=== PATIENT | male | born 1940 | race Caucasian/White ===

== ENCOUNTER 2023-12-09 14:52 | Inpatient (IN) | payer BC, OTHER ==
[~2023-12-09] VITALS: Ht 177.8 cm; Wt 110.0 kg
[~2023-12-09 14:52] MED LIST: GEMF-66; GLYB5TAB66; LISI10TA34; MAGN241.4; METO1TAB9; POTA-220; SITA50TA13; WARF6TAB2
[2023-12-09] MEDS: FUROSEMIDE 40 MG/4 ML VIAL IV ONE (15:42)
[2023-12-09 15:46] LABS: Basophils # (auto) 0 10 ^3/uL (0-0.2); Basophils % (auto) 0.2 % (0.0-2.0); Eosinophils # (auto) 0 10 ^3/uL (0-0.8); Eosinophils % (auto) 0.1 % (0.0-7.0); Hematocrit 45.5 % (41.0-53.0); Hemoglobin 14.8 g/dL (13.5-17.5); Lymphocytes # (auto) 0.8 10 ^3/uL (0.4-5.4); Lymphocytes % (auto) 9.5 % (10.0-50.0); Mean Corpuscular Hgb Conc. 32.4 g/dL (32.0-36.0); Mean Corpuscular Volume 95.5 fL (80.0-100.0); Monocytes # (auto) 0.8 10 ^3/uL (0-1.3); Neutrophils # (auto) 6.6 10 ^3/uL (1.6-8.6); Neutrophils % (auto) 80.2 % (37.0-80.0); Nucleated Red Blood Cells % 0.1 %; Red Blood Cells 4.76 10^6/uL (4.5-5.90); Red Cell Distribution Width 15.4 % (11.8-14.3); White Blood Cell 8.3 10^3/uL (4.4-10.8)
[2023-12-09 16:00] VITALS: PULSE 54; RESP 16; O2SAT 96
[2023-12-09 16:08] LABS: Urine Bacteria None Seen /hpf (None Seen)
[2023-12-09 16:12] LABS: Chloride 100 mmol/L (98-107); Potassium 5.2 mmol/L (3.5-5.1); Sodium 137 mmol/L (136-145)
[2023-12-09 16:13] LABS: Anion Gap 3 (5-15); Calcium 8.7 mg/dL (8.7-10.4); Carbon Dioxide 34 mmol/L (20-30)
[2023-12-09 16:18] LABS: Blood Urea Nitrogen 16 mg/dL (9-23); Glucose 186 mg/dL (74-106)
[2023-12-09 16:38] LABS: Urine Blood Negative /uL (Negative); Urine Clarity Clear (Clear); Urine Color Yellow (Yellow); Urine Hyaline Cast FEW /lpf (0 - 2); Urine Mucus FEW (None Seen); Urine Protein, UAD TRACE (Negative); Urine Specific Gravity 1.018 (1.001-1.035); Urine Urobilinogen 4 mg/dL (Negative); Urine WBC 3 /hpf (0 - 3)
[2023-12-09 19:30] VITALS: PULSE 70; RESP 16; O2SAT 98
[2023-12-09] MEDS ORDERED: hydrALAZINE HCL 20 MG/ML VL IV PRN (22:15)
[2023-12-09] MEDS ORDERED: ACETAMINOPHEN 325 MG TAB PO PRN (22:15)
[2023-12-09] MEDS ORDERED: SODIUM CHLORIDE 0.9% 1,000 ML IV SCH (22:15)
[2023-12-09] MEDS ORDERED: ONDANSETRON HCL 4 MG/2 ML VIAL IV PRN (22:15)
[2023-12-09] MEDS ORDERED: DEXTROSE (50%) 50ML SYRG IV PRN (22:15)
[2023-12-09] MEDS ORDERED: NITROGLYCERIN 0.4 MG SL TAB SL PRN (23:45)
[2023-12-10] VITALS (10 sets, daily range): BP systolic 99–141; BP diastolic 54–76; PULSE 65–71; RESP 17–20; TEMP 97.2–98.1; O2SAT 94–100
[2023-12-10] MEDS ORDERED: APIX2.5T PO (03:02)
[2023-12-10 05:58] LABS: Alkaline Phosphatase 56 U/L (46-116); Anion Gap 7 (5-15); Aspartate Aminotransferase 25 U/L (13-40); Calcium 8.6 mg/dL (8.7-10.4); Carbon Dioxide 31 mmol/L (20-30); Chloride 99 mmol/L (98-107); Potassium 4.2 mmol/L (3.5-5.1); Sodium 137 mmol/L (136-145)
[2023-12-10 06:00] LABS: BUN/Creatinine Ratio 10.3 (10.0-20.0); Blood Urea Nitrogen 12 mg/dL (9-23); Glucose 123 mg/dL (74-106)
[2023-12-10 06:02] LABS: Bilirubin, Total 1.7 mg/dL (0.2-1.0)
[2023-12-10] MEDS: InsuLIN REG 1unit/0.01ml Soln (100units/ml) SC SCH (06:07)
[2023-12-10] MEDS: ACCU-CHEK COMFORT CURVE STRIP VI SCH (06:07)
[2023-12-10 06:12] LABS: Alanine Aminotransferase 18 U/L (7-40)
[2023-12-10 06:13] LABS: Basophils # (auto) 0 10 ^3/uL (0-0.2); Basophils % (auto) 0.2 % (0.0-2.0); Eosinophils # (auto) 0 10 ^3/uL (0-0.8); Eosinophils % (auto) 0.1 % (0.0-7.0); Hematocrit 42.8 % (41.0-53.0); Hemoglobin 14.1 g/dL (13.5-17.5); Lymphocytes # (auto) 1.1 10 ^3/uL (0.4-5.4); Lymphocytes % (auto) 9.9 % (10.0-50.0); Mean Corpuscular Hemoglobin 31.4 pg (28.0-32.0); Mean Corpuscular Volume 95.2 fL (80.0-100.0); Monocytes # (auto) 1.4 10 ^3/uL (0-1.3); Monocytes % (auto) 13.2 % (0.0-12.0); Neutrophils # (auto) 8.3 10 ^3/uL (1.6-8.6); Neutrophils % (auto) 76.6 % (37.0-80.0); Nucleated Red Blood Cells % 0.1 %; Red Cell Distribution Width 15.4 % (11.8-14.3); White Blood Cell 10.8 10^3/uL (4.4-10.8)
[2023-12-10 07:10] LABS: Total Protein 5.3 g/dL (5.7-8.2)
[2023-12-10] MEDS ORDERED: SACU1TAB PO (08:50)
[2023-12-10] MEDS ORDERED: LEVO100T8 PO (08:50)
[2023-12-10] MEDS ORDERED: CARVEDILOL 3.125 MG TAB PO SCH (10:00)
[2023-12-10 10:18] LABS: INR 1.26 (0.9-1.15); Partial Thromboplastin Time 27.5 SEC (24.5-34.5); Prothrombin Time 13.1 sec (9.3-11.8)
[2023-12-10] MEDS: APIXABAN 2.5 MG TAB PO SCH (12:09)
[2023-12-10] MEDS: LEVOTHYROXINE SODIUM 100 MCG TAB PO ONE (12:10)
[2023-12-10] MEDS: FUROSEMIDE 40 MG/4 ML VIAL IV SCH (12:10)
[2023-12-10] MEDS: SPIRONOLACTONE 25 MG TAB PO ONE (12:10)
[2023-12-10 12:21] LABS: LDL Cholesterol 28 mg/dL (< 100); Triglycerides 81 mg/dL (< 150)
[2023-12-10 12:23] LABS: Cholesterol 84 mg/dL (< 200); HDL Cholesterol 41 mg/dL (40-59)
[2023-12-10] MEDS: METOPROLOL SUCCINATE XL 50 MG TAB PO ONE (17:36)
[2023-12-10] MEDS: GEMFIBROZIL 600 MG TAB PO SCH (21:33)
[2023-12-11] VITALS (10 sets, daily range): BP systolic 92–128; BP diastolic 46–62; PULSE 68–71; RESP 16–21; TEMP 97.6–98.4; O2SAT 96–100
[2023-12-11] MEDS: DOCUSATE SOD 100 MG CAP PO PRN (05:28)
[2023-12-11] MEDS: LEVOTHYROXINE SODIUM 100 MCG TAB PO SCH (05:28)
[2023-12-11 06:04] LABS: Chloride 97 mmol/L (98-107); Potassium 4.4 mmol/L (3.5-5.1); Sodium 137 mmol/L (136-145)
[2023-12-11 06:05] LABS: Anion Gap 6 (5-15); Calcium 9.1 mg/dL (8.7-10.4); Carbon Dioxide 34 mmol/L (20-30)
[2023-12-11 06:10] LABS: BUN/Creatinine Ratio 11.3 (10.0-20.0); Blood Urea Nitrogen 13 mg/dL (9-23); Glucose 122 mg/dL (74-106)
[2023-12-11] MEDS: SPIRONOLACTONE 25 MG TAB PO SCH (08:47)
[2023-12-11] MEDS: GEMFIBROZIL 600 MG TAB PO SCH (08:48)
[2023-12-11] MEDS: METOPROLOL SUCCINATE XL 50 MG TAB PO SCH (08:48)
[2023-12-11] MEDS ORDERED: SPIR25TA8 PO (13:33)
[2023-12-12 05:00] VITALS: BP 115/47; PULSE 70; RESP 18; TEMP 97.8; O2SAT 98
[2023-12-12] MEDS: LEVOTHYROXINE SODIUM 100 MCG TAB PO SCH (07:01)
[2023-12-12 08:00] VITALS: PULSE 70
[2023-12-12 08:51] VITALS: BP 129/48; PULSE 70; RESP 19; TEMP 97.7; O2SAT 91
[2023-12-12] MEDS: FUROSEMIDE 20 MG/2 ML VIAL IV SCH (10:39)
[2023-12-12] MEDS: METOPROLOL SUCCINATE XL 50 MG TAB PO SCH (10:44)
[2023-12-12] MEDS: GEMFIBROZIL 600 MG TAB PO SCH (10:45)
[2023-12-12 12:52] VITALS: BP 134/56; PULSE 72; RESP 20; TEMP 97.9; O2SAT 98
[2023-12-12] MEDS ORDERED: FURO1TAB33 PO (13:58)
[2023-12-12 16:50] VITALS: BP 107/59; PULSE 70; RESP 19; TEMP 98; O2SAT 97
[2023-12-12 18:00] VITALS: BP 107/59; PULSE 70; RESP 19; TEMP 98; O2SAT 97
== END 2023-12-12 19:12 | disposition home health service (06) | DRG 291 ==
LOC: ER 14:52 → EDBD 14:52 → EDUNIT# 14:52 → TELE-WESTW 23:38 → TELE 23:38 → TELE-WESTW 12-10 02:15
PROVIDERS: ADMIT Nurse Practitioner Family; ATTEND Internal Medicine Geriatric Medicine
DX: I11.0 Hypertensive heart disease with heart failure (principal); I50.23 Acute on chronic systolic (congestive) heart failure; J18.9 Pneumonia, unspecified organism; J96.21 Acute and chronic respiratory failure with hypoxia; J44.0 Chronic obstructive pulmonary disease with (acute) lower respiratory infection; E03.9 Hypothyroidism, unspecified; E11.9 Type 2 diabetes mellitus without complications; E66.01 Morbid (severe) obesity due to excess calories; I25.10 Atherosclerotic heart disease of native coronary artery without angina pectoris; I48.0 Paroxysmal atrial fibrillation; I42.9 Cardiomyopathy, unspecified; E78.5 Hyperlipidemia, unspecified; E87.5 Hyperkalemia; I25.2 Old myocardial infarction; Z99.81 Dependence on supplemental oxygen; Z95.810 Presence of automatic (implantable) cardiac defibrillator; Z83.3 Family history of diabetes mellitus; Z82.49 Family history of ischemic heart disease and other diseases of the circulatory system; Z79.899 Other long term (current) drug therapy; Z90.49 Acquired absence of other specified parts of digestive tract; Z68.34 Body mass index [BMI] 34.0-34.9, adult; Z88.5 Allergy status to narcotic agent
CPT/HCPCS: 36415; 71045; 80048; 80053; 80061; 81001; 82962; 83036; 83880; 84443; 84484; 85025; 85610; 85730; 93005; 93306; 97163; 99291; G0378; J1815

== ENCOUNTER 2025-01-08 11:25 | Inpatient (IN) | payer OTHER ==
[~2025-01-08] VITALS: Ht 177.8 cm; Wt 100.0 kg
[~2025-01-08 11:25] MED LIST changes: +AMIO200T13 PO; +APIX2.5T PO; +CARV3.1240 PO; +DAPA1TAB4 PO; +FURO1TAB33 PO; +FURO40TA4 PO; +GAB100C PO; +LEVO100T8 PO; +LEVO137T3 PO; -LISI10TA34; +POTA-180 PO; +SACU1TAB PO; +SIMV20TA20 PO; +SPIR25TA8 PO; +TAMS0.4C39 PO; -WARF6TAB2
--- NOTE | 2025-01-08 12:31 | ED.PDOC ---
History of Present Illness HPI Comments This is an 84-year-old male who comes in with chief complaint of generalized weakness for approximately three days as well as some shortness for breath. According to the family this morning the patient was somewhat hypotensive. He did have some nausea yesterday. 911 was called today and the patient was awad sported to our facility. When the paramedics arrived, the patient was having an oxygen saturation in the 80s. The patient was given 4 L nasal cannula of oxygen. The patient was also complaining of some leg swelling. EN route, the patient's blood pressure was 81/60. The patient had an IV Hep-Lock established and was given normal saline at a 600 cc bolus. At that time the patient's blood pressure went up to 95/65. EN route the patient's Accu-Chek was 260 Chief Complaint: Shortness of Breath Time Seen by MD: 11:44 Reviewed Notes: Nurses Notes, Medications, Allergies Allergies: Coded Allergies: Codeine (Unverified Allergy, Unknown, 04/02/12) Home Meds Active Scripts Furosemide (Lasix) 20 Mg Tb, 1 TAB PO DAILY, #90 TAB 1 Refill Prov:LEEANN LAFLEUR FIRER BISQUE KILN 12/12/23 Reported Medications Spironolactone (Spironolactone) 25 Mg Tab, 1 TAB PO DAILY 12/11/23 Sacubitril-Valsartan (Entresto 24-26 mg) 1 Tab Tab, 1 TAB PO BID, TAB 12/10/23 Levothyroxine Sodium (Levothyroxine Sodium) 100 Mcg Tab, 100 MCG PO QAM for 30 Days, MCG 12/10/23 Apixaban Base (ELIQUIS) 2.5 Mg Tab, 2.5 MG PO BID, TAB 12/10/23 Potassium Chloride (Klor-Con M20) 20 Meq Tab, DAILY 04/02/12 Sitagliptin-Metformin Hcl (Janumet) 1 Tab Tab 04/02/12 Magnesium Oxide (Mag-Ox) 400 Mg Tb, DAILY 04/02/12 Gemfibrozil (Gemfibrozil) 600 Mg Tab, BID 04/02/12 Glyburide (Diabeta) 5 Mg Tab, BID 04/02/12 Metoprolol Succinate (Metoprolol Succinate Er) 100 Mg Tab, BID 04/02/12 Information Source: Patient, Emergency Med Personnel Mode of Arrival: EMS Severity: Moderate Timing: Days Duration: Since onset Prehospital treatment: Accucheck (Two hundred sixty), Edge Runner, IVF, Other (Normal saline bolus) Past Medical History PAST MEDICAL HISTORY: AFIB, CHF, COPD, DM, High Lipids, HTN, IL Surgical History: Cholecystectomy, Pacemaker Surgical History (Other): Cataract surgery, right shoulder surgery, right arm surgery, right elbow surgery Family History Family History: Unknown Social History Smoker: Non-Smoker Alcohol: Denies ETOH Use Drugs: Denies Drug Use Lives In: Home Constitutional: reports: weakness; denies: chills, diaphoresis, fatigue, fever, malaise, sweats, others EENTM: denies: blurred vision, double vision, ear bleeding, ear discharge, ear drainage, ear pain, ear ringing, eye pain, eye redness, hearing loss, mouth pain, mouth swelling, nasal discharge, nose bleeding, nose congestion, nose pain, photophobia, tearing, throat pain, throat swelling, voice changes, others Respiratory: reports: shortness of breath; denies: cough, hemoptysis, ortho pnea, SOB at rest, SOB with excertion, stridor, wheezing, others Cardiovascular: denies: chest pain, dizzy spells, diaphoresis, Dyspnea on exertion, edema, irregular heart beat, left arm pain, lightheadedness, palpitations, PND, syncope, others Gastrointestinal: reports: nausea; denies: abdomen distended, abdominal pain, blood streaked bowels, constipated, diarrhea, dysphagia, difficulty swallowing, hematemesis, melena, poor appetite, poor fluid intake, rectal bleeding, rectal pain, vomiting, others Genitourinary: denies: burning, dysuria, flank pain, frequency, hematuria, incontinence, penile discharge, penile sore, pain, testicle pain, testicle swelling, urgency, others Neurological: denies: dizziness, fainting, headache, left sided numbness, left sided weakness, numbness, paresthesia, pre-existing deficit, right sided numbness, right sided weakness, seizure, speech problems, tingling, tremors, weakness, others Musculoskeletal: reports: others (Bilateral leg edema with some arm edema); denies: back pain, gout, joint pain, joint swelling, muscle pain, muscle stiffness, neck pain Integumetry: denies: bruises, change in color, change in hair/nails, dryness, laceration, lesions, lumps, rash, wounds, others Allergic/Immunocompromised: denies: Difficulty Healing, Frequent Infections, Hives, Itching, others Hematologic/Lymphatic: denies: anemia, blood clots, easy bleeding, easy bruising, swollen glands, others Endocrine: denies: excessive hunger, excessive sweating, excessive thirst, excessive urination, flushing, intolerance to cold, intolerance to heat, unexplained weight gain, unexplained weight loss, others Physical Exam General Appearance: Moderate Distress, Obese HEENT: Pale Conjuntivae (L), Pale Conjuntivae (R), Pharynx Normal, TMs Normal Neck: Full Range of Motion, Non-Tender, Normal, Normal Inspection Respiratory: Chest Non-Tender, Lungs Clear, No Accessory Muscle Use, No Respiratory Distress, Normal Breath Sounds Cardiovascular: No Edema, No JVD, No Murmur, No Gallop, Normal Peripheral Pulses, Regular Rate/Rhythm Breast Exam: Deferred Gastrointestinal: No Organomegaly, Non Tender, No Pulsatile Mass, Normal Bowel Sounds, Soft Genitalia: Deferred Pelvic: Deferred Rectal: Deferred Extremities: No calf tenderness, Normal capillary refill, Normal inspection, Normal range of motion, Non-tender, No pedal edema Musculoskeletal : Apperance: Normal Neurologic: food operations manager II-XII nml as Tested, Motor Weakness, Normal Affect, Normal Mood, No Sensory Deficits Cerebellar Function: Normal Reflexes: Normal Skin: Dry, Pallor, Warm Lymphatic: No Adenopathy Was a procedure done? Was a procedure done?: No EKG EKG : Pulse Rate (adult): 73 Cardiac Rhythm: Paced Block: None ST: Nonsp Differential Dx Considerations may include: ACS, IL, pneumonia, sepsis, CHF, generalized weakness X-Ray, Labs, Meds, VS Vital Signs Date Time Temp Pulse Resp B/P (MAP) Pulse Ox O2 Delivery O2 Flow Rate FiO2 01/08/25 16:00 85/57 01/08/25 15:55 86/54 01/08/25 15:40 86/56 01/08/25 15:00 82/52 01/08/25 14:53 70 26 98 Nasal Cannula* 3 32 01/08/25 14:53 97.1 70 26 84/51 (62) 98 97.1 01/08/25 14:53 84/51 01/08/25 14:19 85/61 01/08/25 13:49 117 20 98/60 (73) 94 01/08/25 12:50 Nasal Cannula* 3 32 01/08/25 12:31 73 01/08/25 12:30 109 01/08/25 11:52 97.6 70 20 81/40 (54) 98 97.6 01/08/25 11:25 97.8 70 20 95/65 98 97.8 01/08/25 11:25 98 Nasal Cannula* 4 36 Lab Test 01/08/25 15:06 01/08/25 13:26 01/08/25 12:43 01/08/25 12:15 Range/Units Troponin I High Sensitivity 103 *H 93 *H 97 *H </=54 ng/L Urine Color Yellow Yellow Urine Clarity Turbid H Clear Urine pH 5.5 5.0-9.0 Urine Specific [place] 1.011 1.001-1.035 Urine Protein Negative Negative Urine Ketones Negative Negative Urine Blood Negative Negative /uL Urine Nitrite Negative Negative Urine Bilirubin Negative Negative Urine Urobilinogen Normal Negative mg/dL Urine Leukocyte Esterase Negative Negative /uL Urine RBC 2 0 - 3 /hpf Urine Microscopic WBC 3 0-3 /HPF Urine Squamous Epithelial Cells Few <5 /hpf Urine Bacteria None seen None Seen /hpf Urine Hyaline Casts Mod 0 - 2 /lpf Urine Yeast (Budding) Occasional None Seen /hpf Urine Glucose 4+ H Normal mg/dL White Blood Count 8.6 4.4-10.8 10^3/uL Red Blood Count 4.57 4.5-5.90 10^6/uL Hemoglobin 14.5 13.5-17.5 g/dL Hematocrit 43.5 41.0-53.0 % Mean Corpuscular Volume 95.2 80.0-100.0 fL Mean Corpuscular Hemoglobin 31.7 28.0-32.0 pg Mean Corpuscular Hemoglobin Concent 33.3 32.0-36.0 g/dL Red Cell Distribution Width 16.5 H 11.8-14.3 % Platelet Count 167 140-450 10^3/uL Mean Platelet Volume 7.6 6.9-10.8 fL Neutrophils (%) (Auto) 85.5 H 37.0-80.0 % Lymphocytes (%) (Auto) 5.4 L 10.0-50.0 % Monocytes (%) (Auto) 8.6 0.0-12.0 % Eosinophils (%) (Auto) 0.4 0.0-7.0 % Basophils (%) (Auto) 0.1 0.0-2.0 % Neutrophils # (Auto) 7.4 1.6-8.6 10 ^3/uL Lymphocytes # (Auto) 0.5 0.4-5.4 10 ^3/uL Monocytes # (Auto) 0.7 0-1.3 10 ^3/uL Eosinophils # (Auto) 0 0-0.8 10 ^3/uL Basophils # (Auto) 0 0-0.2 10 ^3/uL Nucleated Red Blood Cells 0.4 % Lactic Acid Level 2.0 0.4-2.0 mmol/L B-Type Natriuretic Peptide 931.69 0-100 pg/mL Current Medications Medications (Trade) Dose Ordered Sig/Ina Route Start Time Stop Time Status Last Admin Sodium Chloride 1,000 ml @ 150 mls/hr Q6H40M ONCE IV 01/08/25 12:00 01/08/25 18:39 01/08/25 13:14 Norepinephrine Bitartrate 250 ml @ 3.75 mls/hr Q24H IV 01/08/25 14:15 01/08/25 14:19 Ceftriaxone Sodium 50 ml @ 100 mls/hr ONCE ONCE IV 01/08/25 16:15 01/08/25 16:44 01/08/25 16:32 IV Hep-Lock was established. Blood cultures x2 were drawn on this patient Chest x-ray shows: FINDINGS: The cardiac silhouette is enlarged. The lungs demonstrate bilateral patchy airspace opacities. The pulmonary vasculature is prominent. Moderate left and small to moderate right pleural effusions. Left chest dual lead cardiac pacer device. There is no pneumothorax. The patient's CBC is within normal limits The chemistry panel is within normal limits The BNP is 931.69 The urine test is negative for infection The troponin level started out at 97 and is now 103 The patient is being admitted The patient remained somewhat hypotensive so we did give 30 mL/kilogram of fluid. Despite the fluids, the patient remained somewhat hypotensive so the patient was started on norepinephrine. The patient is being admitted at this time Images Reviewed?: Images reviewed and evaluated by me Time of 1ST Reevaluation: 12:31 Reevaluation 1ST: Unchanged Patient Education/Counseling: Diagnosis, Treatment, Prognosis Family Education/Counseling: No Family Present SEPSIS Sepsis Screen Date sepsis recognized/suspect: Jan 08, 2025 Time Sepsis recognized/suspect: 1148 Recent Procedure: No On Antibiotic Therapy: No Respiratory Rate >20: No Heart Rate >90: No Temp<36 C (96.8 F) or >38.3 C: No SBP <90 or MAP <65 mmHG: No New Acute Mental Status Change: No Is the patient on CPAP, BIPAP,: No Physician Orders Med Neb Initial Treatment (01/08/25 11:55) Chest Portable (01/08/25 11:55) Heplock Iv (01/08/25 11:55) Pulse Oximetry (01/08/25 11:55) Oxygen (01/08/25 11:55) Edge Runner (01/08/25 11:55) Blood Pressure (01/08/25 11:55) Electrocardigram (01/08/25 11:55) Blood Culture (01/08/25 11:55) Sodium Chloride 0.9% (01/08/25 12:00) Electrocardigram (01/08/25 12:55) Electrocardigram (01/08/25 14:55) Norepinephrine 8 Mg/250ml Kit (Levophed) (01/08/25 14:15) Vancomycin 1gm/250ml Kit (01/08/25 16:15) Ceftriaxone 1gm/50ml D5w (Rocephin) (01/08/25 16:15) Vital Signs Date Time Temp Pulse Resp B/P (MAP) Pulse Ox O2 Delivery O2 Flow Rate FiO2 01/08/25 16:00 85/57 01/08/25 15:55 86/54 01/08/25 15:40 86/56 01/08/25 15:00 82/52 01/08/25 14:53 70 26 98 Nasal Cannula* 3 32 01/08/25 14:53 97.1 70 26 84/51 (62) 98 97.1 01/08/25 14:53 84/51 01/08/25 14:19 85/61 01/08/25 13:49 117 20 98/60 (73) 94 01/08/25 12:50 Nasal Cannula* 3 32 01/08/25 12:31 73 01/08/25 12:30 109 01/08/25 11:52 97.6 70 20 81/40 (54) 98 97.6 01/08/25 11:25 97.8 70 20 95/65 98 97.8 01/08/25 11:25 98 Nasal Cannula* 4 36 Laboratory Tests Test 01/08/25 12:15 Lactic Acid Level 2.0 mmol/L (0.4-2.0) White Blood Count 8.6 10^3/uL (4.4-10.8) Medications Medications Dose Ordered Sig/Ina Route Start Time Stop Time Status Last Admin Dose Admin Ceftriaxone Sodium 50 ml @ 100 mls/hr ONCE ONCE IV 01/08/25 16:15 01/08/25 16:44 01/08/25 16:32 Norepinephrine Bitartrate 250 ml @ 3.75 mls/hr Q24H IV 01/08/25 14:15 01/08/25 14:19 Sodium Chloride 1,000 ml @ 150 mls/hr Q6H40M ONCE IV 01/08/25 12:00 01/08/25 18:39 01/08/25 13:14 Departure 1 Departure Time of Disposition: 16:13 Impression: Primary Impression: Acute respiratory failure Qualified Codes: J96.01 - Acute respiratory failure with hypoxia Additional Impressions: Hypotension Qualified Codes: I95.9 - Hypotension, unspecified Bilateral pleural effusion Disposition: ADMITTED INPATIENT Admit to: ICU Condition: Guarded Critical Care Note Critical Care Time?: Yes (55 min-critical care time only) Stability Stability form required: Yes Unstable for transfer: ICU, CCU, PCU, LETY (Intensive VS monitoring), ED Physician Assesment (Clinical assesment) Heart Score Heart Score: Heart Score Response (Comments) Value History N/A 0 EKG N/A 0 Age N/A 0 Risk Factors N/A 0 Troponin N/A 0 Total 0 RIGOBERTO MEJIA MD Jan 08, 2025 12:31
[2025-01-08 12:44] LABS: Hematocrit 43.5 % (41.0-53.0); Hemoglobin 14.5 g/dL (13.5-17.5); Mean Corpuscular Hemoglobin 31.7 pg (28.0-32.0); Mean Corpuscular Volume 95.2 fL (80.0-100.0); Nucleated Red Blood Cells % 0.4 %
[2025-01-08] MEDS: SODIUM CHLORIDE 0.9% 1,000 ML IV ONE (13:14)
--- NOTE | 2025-01-08 13:15 | DVH ---
CHEST RADIOGRAPH Indication: sob Technique: XY CHEST PORTABLE COMPARISON: None FINDINGS: The cardiac silhouette is enlarged. The lungs demonstrate bilateral patchy airspace opacities. The pu lmonary vasculature is prominent. Moderate left and small to moderate right pleural effusions. Left chest dual lead cardiac pacer device. There is no pneumothorax. IMPRESSION: As above
[2025-01-08 13:30] LABS: Urine Budding Yeast OCCASIONAL /hpf (None Seen); Urine Protein, UAD Negative (Negative)
[2025-01-08] MEDS: NOREPINEPHRINE 8 MG/250ML KIT 250 ML IV SCH (14:19)
[2025-01-08 14:53] VITALS: PULSE 70; RESP 26; O2SAT 98
[2025-01-08] MEDS: ONDANSETRON HCL 4 MG/2 ML VIAL IV ONE (16:51)
[2025-01-08] MEDS: MORPHINE SULFATE INJ 2 MG/ml SYRG IV ONE (16:52)
[2025-01-08] MEDS: VANCOMYCIN 1GM/250ML KIT 250 ML IV ONE (17:05)
[2025-01-08 19:30] VITALS: PULSE 70; RESP 19; O2SAT 98
[2025-01-08] MEDS ORDERED: ONDANSETRON HCL 4 MG/2 ML VIAL IV PRN (19:30)
[2025-01-08] MEDS ORDERED: MORPHINE SULFATE INJ 2 MG/ml SYRG IV PRN (19:30)
[2025-01-08] MEDS ORDERED: IPRATROPIUM BROM 0.5 MG/2.5ML INH SOL NEB PRN (19:30)
[2025-01-08] MEDS ORDERED: NITROGLYCERIN 0.4 MG SL TAB SL PRN (19:30)
[2025-01-08] MEDS ORDERED: DEXTROSE (50%) 50ML SYRG IV PRN (19:30)
[2025-01-08] MEDS ORDERED: ACETAMINOPHEN 325 MG TAB PO PRN (19:30)
[2025-01-08] MEDS ORDERED: ALBUTEROL SULF 2.5 MG/0.5ML(0.5%) NEB SOLN NEB PRN (19:30)
[2025-01-08 19:38] VITALS: BP 98/51; PULSE 70; RESP 20; TEMP 97.1; O2SAT 99
[2025-01-08] MEDS: FUROSEMIDE 20 MG/2 ML VIAL IV ONE (19:41)
[2025-01-08 20:09] LABS: Potassium 4.2 mmol/L (3.5-5.1)
[2025-01-08 20:10] LABS: Anion Gap 13 (5-15); Carbon Dioxide 22 mmol/L (20-31)
[2025-01-08 20:15] LABS: BUN/Creatinine Ratio 10.3 (10.0-20.0); Blood Urea Nitrogen 20 mg/dL (9-23)
[2025-01-08 20:17] LABS: Calcium 8.1 mg/dL (8.7-10.4); Chloride 97 mmol/L (98-107); Glucose 151 mg/dL (74-106); Sodium 132 mmol/L (136-145)
[2025-01-08] MEDS: HYDROcodone-ACET 7.5/325MG TAB PO ONE (21:11)
[2025-01-08] MEDS: ACCU-CHEK COMFORT CURVE STRIP VI SCH (23:12)
[2025-01-08] MEDS: APIXABAN 2.5 MG TAB PO SCH (23:12)
[2025-01-08] MEDS: ATORVASTATIN 20 MG TAB PO SCH (23:13)
[2025-01-08] MEDS: InsuLIN REG 1unit/0.01ml Soln (100units/ml) SC SCH (23:17)
[2025-01-09] VITALS (40 sets, daily range): BP systolic 51–183; BP diastolic 27–101; PULSE 70–142; RESP 18–27; TEMP 97.1; O2SAT 4–98
--- NOTE | 2025-01-09 02:25 | DVHHP2 ---
History of Present Illness Reason for Visit: Shortness for breath History of Present Illness 84-year-old male presents for evaluation of shortness for breath. Patient reports a four day history of worsening shortness for breath with associated nonproductive cough. Also reports lower extremity swelling. No fever or chills. No other acute complaints reported. Past Medical History COPD, CHF, atrial fibrillation, dyslipidemia, hypertension, mi, diabetes mellitus Past Surgical History Cholecystectomy, pacemaker, shoulder surgery Family History Noncontributory Smoke: No ALCOHOL: none Drugs: None Lives: with Family Review of Systems Review of Systems Review of systems are currently negative otherwise addressed in HPI. Allergies: Coded Allergies: Codeine (Unverified Allergy, Unknown, 04/02/12) Medications Current Medications Medications Dose Ordered Sig/Ina Route Start Time Stop Time Status Last Admin Dose Admin Norepinephrine Bitartrate 250 ml @ 3.75 mls/hr Q24H IV 01/08/25 14:15 01/08/25 14:19 3.75 MLS/HR Ceftriaxone Sodium 50 ml @ 100 mls/hr DAILY@09 IV 01/09/25 09:00 Azithromycin 250 ml @ 125 mls/hr DAILY IV 01/09/25 10:00 Apixaban 2.5 mg BID PO 01/08/25 22:00 01/08/25 23:12 2.5 MG Albuterol 2.5 mg Q6HPRN PRN NEB 01/08/25 19:30 Ipratropium [place] 0.5 mg Q6HPRN PRN NEB 01/08/25 19:30 Furosemide 20 mg DAILY IV 01/09/25 10:00 Aspirin 162 mg DAILY PO 01/09/25 10:00 Atorvastatin Calcium 10 mg HS PO 01/08/25 22:00 01/08/25 23:13 10 MG Diagnostic Test (Pha) 1 strip ACHS 01/08/25 22:00 01/08/25 23:12 1 STRIP Insulin Human Regular ACHS SC 01/08/25 22:00 01/08/25 23:17 2 UNITS Dextrose 50 ml UD PRN IV 01/08/25 19:30 Ondansetron HCl 4 mg Q4HP PRN IV 01/08/25 19:30 Acetaminophen 650 mg Q6HP PRN PO 01/08/25 19:30 Nitroglycerin 0.4 mg Q5MINP PRN SL 01/08/25 19:30 Morphine Sulfate 2 mg Q30M PRN IV 01/08/25 19:30 Exam Vital Signs Vital Signs Date Time Temp Pulse Resp B/P (MAP) Pulse Ox O2 Delivery O2 Flow Rate FiO2 01/09/25 00:00 70 12 82/50 (61) 97 01/08/25 19:38 Nasal Cannula 3.0 01/08/25 19:38 32 01/08/25 19:38 97.1 97.1 Exam Gen: 84-year-old male in mild distress Skin: Warm, dry, normal color and texture, no rash. HEENT: Normocephalic atraumatic, mucous membranes moist and pink. Neck: Cervical and supraclavicular nodes normal without enlargement, trachea is midline, thyroid gland is normal without masses. Pulmonary: Clear to auscultation and percussion bilaterally. Cardiac: Regular rate and rhythm. No murmur Abdomen: Soft, nontender, nondistended, bowel sounds present all 4 quadrants, no guarding, no rigidity, no organomegaly. Extremities: No cyanosis, clubbing, no edema Neuro: Cranial nerves II through XII grossly intact, normal affect and speech, no focal motor deficits. Labs/Xrays ORDERING PHYSICIAN: RIGOBERTO MEJIA MD PROCEDURE(s): CXRP - CHEST PORTABLE REASON: sob ORDER NUMBER(s): [id number], ACCESSION NUMBER(s): [id number] CHEST RADIOGRAPH Indication: sob Technique: XY CHEST PORTABLE COMPARISON: None FINDINGS: The cardiac silhouette is enlarged. The lungs demonstrate bilateral patchy airspace opacities. The pulmonary vasculature is prominent. Moderate left and small to moderate right pleural effusions. Left chest dual lead cardiac pacer device. There is no pneumothorax. IMPRESSION: As above Labs Test 01/08/25 23:13 01/08/25 15:06 01/08/25 12:43 01/08/25 12:15 Range/Units POC Glucose 150 H 70-106 mg/dl Sodium Level 132 L 136-145 mmol/L Potassium Level 4.2 3.5-5.1 mmol/L Chloride Level 97 L 98-107 mmol/L Carbon Dioxide Level 22 20-31 mmol/L Anion Gap 13 5-15 Blood Urea Nitrogen 20 9-23 mg/dL Creatinine 1.94 H 0.700-1.30 mg/dL Glomerular Filtration Rate Calc 33 >90 mL/min BUN/Creatinine Ratio 10.3 10.0-20.0 Serum Glucose 151 H 74-106 mg/dL Calcium Level 8.1 L 8.7-10.4 mg/dL Troponin I High Sensitivity 103 *H </=54 ng/L Urine Color Yellow Yellow Urine Clarity Turbid H Clear Urine pH 5.5 5.0-9.0 Urine Specific [place] 1.011 1.001-1.035 Urine Protein Negative Negative Urine Ketones Negative Negative Urine Blood Negative Negative /uL Urine Nitrite Negative Negative Urine Bilirubin Negative Negative Urine Urobilinogen Normal Negative mg/dL Urine Leukocyte Esterase Negative Negative /uL Urine RBC 2 0 - 3 /hpf Urine Microscopic WBC 3 0-3 /HPF Urine Squamous Epithelial Cells Few <5 /hpf Urine Bacteria None seen None Seen /hpf Urine Hyaline Casts Mod 0 - 2 /lpf Urine Yeast (Budding) Occasional None Seen /hpf Urine Glucose 4+ H Normal mg/dL White Blood Count 8.6 4.4-10.8 10^3/uL Red Blood Count 4.57 4.5-5.90 10^6/uL Hemoglobin 14.5 13.5-17.5 g/dL Hematocrit 43.5 41.0-53.0 % Mean Corpuscular Volume 95.2 80.0-100.0 fL Mean Corpuscular Hemoglobin 31.7 28.0-32.0 pg Mean Corpuscular Hemoglobin Concent 33.3 32.0-36.0 g/dL Red Cell Distribution Width 16.5 H 11.8-14.3 % Platelet Count 167 140-450 10^3/uL Mean Platelet Volume 7.6 6.9-10.8 fL Neutrophils (%) (Auto) 85.5 H 37.0-80.0 % Lymphocytes (%) (Auto) 5.4 L 10.0-50.0 % Monocytes (%) (Auto) 8.6 0.0-12.0 % Eosinophils (%) (Auto) 0.4 0.0-7.0 % Basophils (%) (Auto) 0.1 0.0-2.0 % Neutrophils # (Auto) 7.4 1.6-8.6 10 ^3/uL Lymphocytes # (Auto) 0.5 0.4-5.4 10 ^3/uL Monocytes # (Auto) 0.7 0-1.3 10 ^3/uL Eosinophils # (Auto) 0 0-0.8 10 ^3/uL Basophils # (Auto) 0 0-0.2 10 ^3/uL Nucleated Red Blood Cells 0.4 % Lactic Acid Level 2.0 0.4-2.0 mmol/L B-Type Natriuretic Peptide 931.69 0-100 pg/mL SEPSIS Sepsis Screen Date sepsis recognized/suspect: Jan 08, 2025 Time Sepsis recognized/suspect: 1929 Recent Procedure: No On Antibiotic Therapy: No Respiratory Rate >20: No Heart Rate >90: No Temp<36 C (96.8 F) or >38.3 C: No SBP <90 or MAP <65 mmHG: No New Acute Mental Status Change: No Is the patient on CPAP, BIPAP,: No Physician Orders Ceftriaxone 1gm/50ml D5w (Rocephin) (01/09/25 09:00) Azithromycin 500mg/ 250ml (Zithromax 50 (01/09/25 10:00) Apixaban (Eliquis) (01/08/25 22:00) Albuterol Medneb (Ventolin Medneb) (01/08/25 19:30) Ipratropium Medneb (Atrovent Medneb) (01/08/25 19:30) Furosemide Injection (Lasix Injection) (01/09/25 10:00) Aspirin Tablet (01/09/25 10:00) Atorvastatin (Lipitor) (01/08/25 22:00) Glucose Blood (Accu-Chek Comfort Curve T (01/08/25 22:00) Insulin R (Human) (Insulin R) (01/08/25 22:00) Dextrose 50% Syringe (01/08/25 19:30) Admit (01/08/25 19:18) Ondansetron Hcl (Zofran) (01/08/25 19:30) Complete Blood Count (01/09/25 04:00) Comprehensive Metabolic Panel (01/09/25 04:00) Cardiac Diet-2gna,Lofat,Lochol (01/09/25 Breakfast) Echo 2d Mode Cardiac Dop (01/08/25 19:18) Condition: Critical (01/08/25 19:18) Acetaminophen Tablet (Tylenol Tablet) (01/08/25 19:30) Bedrest With Bathroom Privileg (01/08/25 19:18) Nitroglycerin Sublingual (Ntrostat Subli (01/08/25 19:30) Morphine Sulfate Injection (01/08/25 19:30) Stat Ekg For Chest Pain (01/08/25 19:18) Notify Md Of Changes From Base (01/08/25 19:18) Account Development Representative For 24 Hours (01/08/25 19:18) Emergency Dysrhythmia Protocol (01/08/25 19:18) Rhythm Strips Once Every Shift (01/08/25 19:18) Oxygen By Nasal Cannula (01/08/25 19:18) Vital Signs Date Time Temp Pulse Resp B/P (MAP) Pulse Ox O2 Delivery O2 Flow Rate FiO2 01/09/25 00:00 70 12 82/50 (61) 97 01/08/25 23:45 70 14 80/41 (54) 96 01/08/25 23:30 70 19 90/58 (69) 96 01/08/25 23:15 70 20 90/45 (60) 99 01/08/25 23:00 70 20 86/45 (59) 92 01/08/25 22:45 70 18 96/50 (65) 95 01/08/25 22:30 70 12 87/57 (67) 95 01/08/25 22:15 70 17 83/50 (61) 95 01/08/25 22:00 70 13 111/49 (69) 95 01/08/25 21:45 70 23 95/54 (68) 96 01/08/25 21:30 70 20 100/54 (69) 96 01/08/25 21:15 70 21 92/52 (65) 96 01/08/25 21:00 70 17 89/49 (62) 95 01/08/25 20:45 70 22 98/44 (62) 94 01/08/25 20:30 70 18 107/82 (90) 96 01/08/25 20:15 70 14 104/57 (73) 98 01/08/25 20:00 70 01/08/25 20:00 70 19 102/52 (69) 97 01/08/25 19:45 70 18 98/51 (67) 98 01/08/25 19:41 98/51 01/08/25 19:38 99 Nasal Cannula 3.0 01/08/25 19:38 99 Nasal Cannula* 3 32 01/08/25 19:38 97.1 70 20 98/51 99 3.0 32 97.1 01/08/25 19:30 70 19 98 Nasal Cannula* 3 32 01/08/25 19:30 70 18 92/60 (71) 99 01/08/25 19:15 98.2 70 17 114/52 (72) 99 98.2 01/08/25 19:00 114/52 01/08/25 19:00 70 18 114/52 (72) 98 01/08/25 18:45 70 18 115/58 (77) 98 01/08/25 18:40 121/59 01/08/25 18:39 70 18 121/59 (79) 98 Medications Medications Dose Ordered Sig/Ina Route Start Time Stop Time Status Last Admin Dose Admin Acetaminophen/ Hydrocodone Bitart 1 tab ONCE ONCE PO 01/08/25 21:15 01/08/25 21:16 DC 01/08/25 21:11 1 TAB Apixaban 2.5 mg BID PO 01/08/25 22:00 01/08/25 23:12 2.5 MG Atorvastatin Calcium 10 mg HS PO 01/08/25 22:00 01/08/25 23:13 10 MG Ceftriaxone Sodium 50 ml @ 100 mls/hr ONCE ONCE IV 01/08/25 16:15 01/08/25 16:44 DC 01/08/25 16:32 100 MLS/HR Diagnostic Test (Pha) 1 strip ACHS 01/08/25 22:00 01/08/25 23:12 1 STRIP Furosemide 20 mg ONCE ONCE IV 01/08/25 19:30 01/08/25 19:32 DC 01/08/25 19:41 20 MG Insulin Human Regular ACHS SC 01/08/25 22:00 01/08/25 23:17 2 UNITS Morphine Sulfate 2 mg ONCE ONCE IV 01/08/25 16:45 01/08/25 16:46 DC 01/08/25 16:52 2 MG Ondansetron HCl 4 mg ONCE ONCE IV 01/08/25 16:45 01/08/25 16:46 DC 01/08/25 16:51 4 MG Vancomycin HCl 250 ml @ 250 mls/hr ONCE ONCE IV 01/08/25 16:15 01/08/25 17:14 DC 01/08/25 17:05 250 MLS/HR Assessment/Plan Assessment/Plan Assessment Acute on chronic respiratory failure Possible pneumonia CHF exacerbation High blood culture Status post pacemaker Plan Admit the patient to ICU to the hospitalist Continue Levophed Rocephin/azithromycin Resume home medications Continue treatment per orders Total critical care time excluding procedures performed this 50 minutes. Plan discussed with: Patient My Orders Orders - SHANNA ESCOBAR AGACNP Procedure Category Date Status Time Ceftriaxone 1gm/50ml PHA 01/09/25 In Process D5w (Rocephin) 09:00 Azithromycin 500mg/ PHA 01/09/25 In Process 250ml (Zithromax 50 10:00 Apixaban (Eliquis) PHA 01/08/25 In Process 22:00 Albuterol Medneb PHA 01/08/25 In Process (Ventolin Medneb) 19:30 Ipratropium Medneb PHA 01/08/25 In Process (Atrovent Medneb) 19:30 Furosemide Injection PHA 01/09/25 In Process (Lasix Injection) 10:00 Aspirin Tablet PHA 01/09/25 In Process 10:00 Atorvastatin (Lipitor) PHA 01/08/25 In Process 22:00 Glucose Blood PHA 01/08/25 In Process (Accu-Chek Comfort 22:00 Insulin R (Human) PHA 01/08/25 In Process (Insulin R) 22:00 Dextrose 50% Syringe PHA 01/08/25 In Process 19:30 Admit ADMIT 01/08/25 Transmitted 19:18 Ondansetron Hcl PHA 01/08/25 In Process (Zofran) 19:30 Complete Blood Count LAB 01/09/25 Logged 04:00 Comprehensive LAB 01/09/25 Logged Metabolic Panel 04:00 Cardiac DIET 01/09/25 Transmitted Diet-2gna,Lofat,Lochol Breakfast Echo 2d Mode Cardiac US 01/08/25 Logged DOP 19:18 Condition: Critical FRANKO 01/08/25 In Process 19:18 Acetaminophen Tablet PHA 01/08/25 In Process (Tylenol Tablet) 19:30 Bedrest With Bathroom FRANKO 01/08/25 In Process Privileg 19:18 Nitroglycerin PHA 01/08/25 In Process Sublingual (Ntrostat 19:30 Morphine Sulfate PHA 01/08/25 In Process Injection 19:30 Stat Ekg For Chest [facility] 01/08/25 In Process Pain 19:18 Notify Md Of Changes [facility] 01/08/25 In Process From Base 19:18 Account Development Representative For [facility] 01/08/25 In Process 24 Hours 19:18 Emergency Dysrhythmia [facility] 01/08/25 In Process Protocol 19:18 Rhythm Strips Once [facility] 01/08/25 In Process Every Shift 19:18 Oxygen By Nasal RT 01/08/25 Transmitted Cannula 19:18 Date of Service: Jan 08, 2025 Billing Provider: SHANNA ESCOBAR Common Visit Codes: [id number] CARE 30-74 MIN SHANNA ESCOBAR Jan 09, 2025 02:25
[2025-01-09 03:00] LABS: Alkaline Phosphatase 74 U/L (46-116); Anion Gap 10 (5-15); BUN/Creatinine Ratio 5.3 (10.0-20.0); Bilirubin, Total 1.1 mg/dL (0.2-1.0); Blood Urea Nitrogen 10 mg/dL (9-23); Chloride 100 mmol/L (98-107); Potassium 4.6 mmol/L (3.5-5.1)
[2025-01-09 03:01] LABS: Hematocrit 49.5 % (41.0-53.0); Hemoglobin 16.1 g/dL (13.5-17.5); Mean Corpuscular Hemoglobin 31.5 pg (28.0-32.0); Mean Corpuscular Volume 96.8 fL (80.0-100.0); Nucleated Red Blood Cells % 0.3 %
[2025-01-09 03:21] LABS: Alanine Aminotransferase 139 U/L (7-40); Albumin 2.9 g/dL (3.2-4.8); Calcium 8.1 mg/dL (8.7-10.4); Carbon Dioxide 19 mmol/L (20-31); Glucose 125 mg/dL (74-106); Sodium 129 mmol/L (136-145); Total Protein 5.4 g/dL (5.7-8.2)
[2025-01-09] MEDS: FUROSEMIDE 20 MG/2 ML VIAL IV SCH (10:00)
[2025-01-09 10:28] LABS: Base Excess -7.2 mmol/L (-2.0-3.0)
--- NOTE | 2025-01-09 10:31 | ECG ---
[facility] Test Date: 2025-01-08 Test Time: 11:28:50 Pat Name: BILL ROSARIO Department: Room: [address] [place] [address] A Gender: M Campus Manager: JIMMY : 1940 Requested By: RIGOBERTO MEJIA Order Number: [id number] Reading MD: Slim Man Measurements Intervals [place] Rate: 73 P: 0 VA: 0 QRS: -31 QRSD: 167 T: 51 QT: 439 QTc: 484 Interpretive Statements Afib/flut and V-paced complexes No further analysis attempted due to paced rhythm Electronically Signed On 01-11-2025 15:03:48 PDT by Slim Man Please click the below link to view image of tracing.
[2025-01-09] MEDS: PHENYLEPHRINE IV 250 ML IV SCH (10:40)
[2025-01-09] MEDS: AZITHROMYCIN 500MG/ 250ML 250 ML IV SCH (10:40)
[2025-01-09] MEDS: SODIUM BICARB 8.4% 50Meq/50ml SYR Vial IV ONE ×2 (10:53→16:40)
[2025-01-09] MEDS: ROCURONIUM 10MG/ML 10ML VIAL IV ONE (11:32)
[2025-01-09] MEDS: ETOMIDATE (2MG/ML) 20ML VIAL IV ONE (11:50)
--- NOTE | 2025-01-09 11:50 | DVH ---
Bilateral Chest Sonogram Date: 01/09/2025 10:55 AM Clinical history: assess pleural effusions for possible thoracentesis Findings: Limited sonographic evaluation of the right and left chest was performed to localize and anabell fluid f or thoracentesis. Large right pleural effusion. Small left pleural effusion. IMPRESSION: Large right pleural effusion. Small left pleural effusion.
--- NOTE | 2025-01-09 12:59 | DVHNC2 ---
Intubation Indication: Respiratory Insufficiency, Altered Mental Status, Airway Protection Prep: Preoxygenation Pretreated with: Sedation Medicated with: Nothing Intubation Approach: Orotracheal Intubation size: cm (8) Informed consent obtained: Yes Risks/benefits/alt described: Yes Notes Patient's and daughter were bedside when patient had decline in status. They were agreeable for patient to be intubated and requested all medical modalities of treatment. Patient was intubated with an 8.0 ET tube using glide scope. Secured at 22 cm at the lip. Positive end-tidal capnography changes well as breath sounds noted in all four lobes. Date of Service: Jan 09, 2025 Billing Provider: LEEANN LAFLEUR NP Common Visit Codes: PROCEDURE ONLY Procedure Codes: [id number] LEEANN LAFLEUR NP Jan 09, 2025 12:59
--- NOTE | 2025-01-09 13:01 | DVHNC2 ---
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 (Terrell Lafleur NP) Indication: Hypotension, CVP monitoring, Inability to obtain IV Room prepared for procedure: Yes [employer] performed hand hygien: Yes Maximal sterile barrier precau: Mask/Eye shield, Sterile gown, Cap, Sterlie gloves, Large sterlie drape Skin Preparation: Chlorhexidine gluconate Skin preparation completely dr: Yes Insertion site: Right, Femoral Central line catheter type: Faz-qhksxwiu-bai dialysis Number of lumens: 3 Central line exchanged over a: No Antiseptic ointment applied to: No Post Assessment: Proper placement Informed consent obtained: No Risks/benefits/alt described: No Notes Central line placed after return of spontaneous circulation during code blue. Ultrasound guidance used. CPT code 96279. Has been blood loss: 5 mL. Date of Service: Jan 09, 2025 Billing Provider: LEEANN LAFLEUR NP Common Visit Codes: PROCEDURE ONLY Procedure Codes: [id number] NON-TUNNEL CV CATH LEEANN LAFLEUR NP Jan 09, 2025 13:01
[2025-01-09 13:03] LABS: Hemoglobin 16.9 g/dL (13.5-17.5); Mean Corpuscular Volume 99.5 fL (80.0-100.0)
--- NOTE | 2025-01-09 13:03 | DVHNC2 ---
Arterial Puncture Indication: Assess ventilatory status, Assess acid-base status Procedure: Sterile Preparation, Arterial Punct Obtained Location: Right Femoral Informed consent obtained: Yes Risks/benefits/alt described: Yes Notes Arterial line placed after return of spontaneous circulation. Right femoral approach used. Ultrasound guidance used. CPT code 09811. Date of Service: Jan 09, 2025 Billing Provider: LEEANN LAFLEUR NP Common Visit Codes: PROCEDURE ONLY Procedure Codes: [id number] LEEANN LAFLEUR NP Jan 09, 2025 13:03
[2025-01-09 13:05] LABS: Hematocrit 53.3 % (41.0-53.0); Mean Corpuscular Hemoglobin 31.6 pg (28.0-32.0); Nucleated Red Blood Cells % 1.6 %
--- NOTE | 2025-01-09 13:09 | DVH ---
XY CHEST PORTABLE, HISTORY: S/P INTUBATION COMPARISON: US CHEST ULTRASOUND on DOS: 01/09/25, XY CHEST PORTABLE on DOS: 01/08/25, XY CHEST XRAY 1 VIE W on DOS: 12/11/23 US CHEST ULTRASOUND on DOS: 01/09/25, XY CHEST PORTABLE on DOS: 01/08/25, XY CHEST XRAY 1 VIEW on DOS: 12/11/23 TECHNICAL DATA: 1 view of the chest was obtained. FINDINGS: Lines and tubes: Stable cardiac pacer/ defibrillator. Endotracheal tube in the mid thoracic trachea. Cardiomediastinal silhouette: Enlarged Pulmonary vasculature: Prominent Lung expansion: Low Lung airspace: Right hemithorax patchy airspace opacity. Lung interstitium: Prominent. Pleura: Similar right pleural effusion. Pneumothorax: no Bones: Unremarkable Other: no IMPRESSION: Endotracheal tube in the mid thoracic trachea. Right hemithorax patchy airspace opacity. Cardiomegaly with pulmonary vascular congestion. Similar right pleural effusion.
--- NOTE | 2025-01-09 13:09 | DVHPN2 ---
Subjective Patient encephalopathic Reviewed: Care Plan, H&P, Labs, Medications, Previous Orders Changes from previous H/P or p: No Changes General: Per HPI Objective Vitals Vital Signs Date Time Temp Pulse Resp B/P (MAP) Pulse Ox O2 Delivery O2 Flow Rate FiO2 01/09/25 12:04 98 01/09/25 11:35 20 98 100 01/09/25 05:20 Nasal Cannula* 3 01/08/25 19:38 97.1 97.1 Intake/Output Intake and Output 01/09/25 07:00 Intake Total 1180.60 ml Balance 1180.60 ml Intake IV Total 1180.60 ml General Appearance: Alert, severe distress, Other (Encephalopathic) HEENT: Atraumatic, PERRLA, Other (Dry mucous membrane) Neck: Carotid [place] Cardiovascular: Normal S1, Normal S2 Abdomen: Normal bowel sounds, Soft, No tenderness Genitourinary: No Apparent Abnormalities Musculoskeletal: Normal sensory function, Normal motor function Extremities: No clubbing, No cyanosis Neuro: Normal gait Skin: Dry, Intact Psych/Mental Status: Mental status NL, Mood NL Medications Current Medications Medications Dose Ordered Sig/Ina Route Start Time Stop Time Status Last Admin Dose Admin Norepinephrine Bitartrate 250 ml @ 3.75 mls/hr Q24H IV 01/08/25 14:15 01/09/25 09:14 56.25 MLS/HR Ceftriaxone Sodium 50 ml @ 100 mls/hr DAILY@09 IV 01/09/25 09:00 01/09/25 09:22 100 MLS/HR Azithromycin 250 ml @ 125 mls/hr DAILY IV 01/09/25 10:00 01/09/25 10:40 125 MLS/HR Apixaban 2.5 mg BID PO 01/08/25 22:00 01/08/25 23:12 2.5 MG Albuterol 2.5 mg Q6HPRN PRN NEB 01/08/25 19:30 Ipratropium [place] 0.5 mg Q6HPRN PRN NEB 01/08/25 19:30 Furosemide 20 mg DAILY IV 01/09/25 10:00 Atorvastatin Calcium 10 mg HS PO 01/08/25 22:00 01/08/25 23:13 10 MG Diagnostic Test (Pha) 1 strip ACHS 01/08/25 22:00 01/09/25 07:00 1 STRIP Insulin Human Regular ACHS SC 01/08/25 22:00 01/08/25 23:17 2 UNITS Dextrose 50 ml UD PRN IV 01/08/25 19:30 Ondansetron HCl 4 mg Q4HP PRN IV 01/08/25 19:30 Acetaminophen 650 mg Q6HP PRN PO 01/08/25 19:30 Nitroglycerin 0.4 mg Q5MINP PRN SL 01/08/25 19:30 Morphine Sulfate 2 mg Q30M PRN IV 01/08/25 19:30 Phenylephrine HCl 250 ml @ 30 mls/hr Q8H20M IV 01/09/25 09:45 01/09/25 10:40 30 MLS/HR Laboratory Results Chemistry Test 01/08/25 15:06 01/09/25 02:39 01/09/25 12:08 Calcium Level 8.1 mg/dL (8.7-10.4) L 8.1 mg/dL (8.7-10.4) L Pending Albumin 2.9 g/dL (3.2-4.8) L Pending Total Protein 5.4 g/dL (5.7-8.2) L Pending Coagulation Test 01/09/25 02:39 D-Dimer, Quantitative 1.51 mg/L FEU (0.0-0.49) H LFT Test 01/09/25 02:39 01/09/25 12:08 Alanine Aminotransferase (ALT) 139 U/L (7-40) H Pending Alkaline Phosphatase 74 U/L (46-116) Pending Aspartate Amino Transferase (AST) 311 U/L (13-40) H Pending Total Bilirubin 1.1 mg/dL (0.2-1.0) H Pending HgA1c, TSH Test 01/09/25 02:39 Hemoglobin A1c 6.7 % A1C (<5.7) H Urinalysis Test 01/08/25 12:43 Urine Color Yellow (Yellow) Urine Clarity Turbid (Clear) H Urine pH 5.5 (5.0-9.0) Urine Specific [place] 1.011 (1.001-1.035) Urine Protein Negative (Negative) Urine Ketones Negative (Negative) Urine Blood Negative /uL (Negative) Urine Nitrite Negative (Negative) Urine Bilirubin Negative (Negative) Urine Urobilinogen Normal mg/dL (Negative) Urine Leukocyte Esterase Negative /uL (Negative) Urine RBC 2 /hpf (0 - 3) Urine Microscopic WBC 3 /HPF (0-3) Urine Squamous Epithelial Cells Few /hpf (<5) Urine Bacteria None seen /hpf (None Seen) Urine Hyaline Casts Mod /lpf (0 - 2) Urine Yeast (Budding) Occasional /hpf (None Urine Glucose 4+ mg/dL (Normal) H Blood Gas Results Test 01/09/25 10:22 Arterial Blood pH 7.328 (7.350-7.450) FiO2 % 36.0 Labs and/or images reviewed: Labs reviewed by me, Image(s) reviewed by me Assessment/Plan Assessment/Plan Impression: -septic shock -metabolic encephalopathy -acute on chronic systolic heart failure -cardiopulmonary arrest -acute hypoxic respiratory failure -atrial fibrillation -acute kidney injury, vasomotor nephropathy -NSTEMI, probably type 2 -severe protein malnutrition -right pleural effusion Plan: -while assessing patient, patient had worsening clinical status and subsequently was a cardiopulmonary arrest. Prior to cardiopulmonary arrest, patient was intubated given patient's agonal breathing. Patient had greater than 10 minutes of ACLS resuscitation. Patient has central line and arterial line also placed by myself. Long discussion was made with the patient's and daughter who were bedside regarding poor prognosis. -continue current antibiotic therapy -chest ultrasound, noted right pleural effusion -vent settings: AC 20, tidal volume 500, peep of five -PUD prophylaxis -stop Eliquis -continue sedation with Versed as needed -repeat labs, chest x-ray, ABG in a.m.. Repeat labs and ABG post resuscitation Critical care time spent with patient discussing and formulating plan of care: 90 minutes. This does not include time spent performing procedures. This medical document was created using an electronic medical record system with [employer] dictation system. Although this document has been carefully reviewed, there may still be some phonetic and typographical errors. These areas are purely typographical due to imperfections of the software programs, and do not reflect any compromise in the patient's medical care. Plan discussed with: Patient, Spouse, Daughter, Other (RN) My Orders Orders - LEEANN LAFLEUR NP Procedure Category Date Status Time Erythrocyte LAB 01/10/25 Verified Sedimentation Rate 04:00 Creatine Kinase LAB 01/10/25 Verified 04:00 Chest Ultrasound US 01/09/25 Resulted 10:44 Chest Portable XY 01/10/25 Logged 04:00 Basic Metabolic Panel LAB 01/10/25 Verified 04:00 Complete Blood Count LAB 01/10/25 Verified 04:00 Chest Portable XY 01/09/25 Taken 11:32 Ventilator Orders RT 01/09/25 Transmitted 11:35 Respiratory Culture CARY 01/09/25 In Process W/ Gs 11:35 Abg W/ Co-Ox RT 01/09/25 Logged 12:30 Comprehensive LAB 01/09/25 In Process Metabolic Panel 12:54 Complete Blood Count LAB 01/09/25 In Process 12:54 Abg W/ Co-Ox RT 01/09/25 Logged 12:54 Date of Service: Jan 09, 2025 Billing Provider: LEEANN LAFLEUR NP Common Visit Codes: [id number] CARE 30-74 MIN, [id number] CARE-EACH +30MIN LEEANN LAFLEUR NP Jan 09, 2025 13:09
[2025-01-09 13:14] LABS: Base Excess -7.3 mmol/L (-2.0-3.0)
[2025-01-09] MEDS: MIDAZOLAM DRIP 50 mg/50mL 50 ML IV SCH (13:30)
[2025-01-09] MEDS: VASOPRESSIN 20 UNITS in SODIUM CHL 0.9% 99 ML IV SCH (13:30)
--- NOTE | 2025-01-09 13:30 | RESUS ---
CODE BLUE ASSESSSMENT History of Events History of Events: Per primary nurse Kathy KNOX, prior to code blue rufina had sudden change in mentation and became hypotensive with agonal breathing at which point he was intubated by hospitalist. Shortly after intubation, heart rate dropped and went into asystole. Code marvin called. CPR initiated. Initial Information Date: Jan 09, 2025 Time: 11:49 Location of Arrest: ER (BED 6-ICU inpatient/overflow) Arrest Witnessed: Yes CPR started initial time: 11:49 CPR started by whom: Hospital Staff Type of arrest: Cardiac, Respiratory, Adult, Witnessed Spontaneous Respirations: No Pulse Present: No Monitoring: ECG, Pulse Oximetry, Telemetry Crash Cart Opened and Supplies: Yes Airway Ventilation Breathing at Onset: Assisted Oxygen Delivery Method: Ambu-Bag Time of first Assisted Ventila: 11:50 Artificial Ventilation: Bag/Endo tube Intubation Size: 8.0 cuffed Intubated by: Terrell Diaz SPECIMEN COLLECTOR Intubated orally: Yes Intubated Nasaly: No Tube secured at: 22 CO2 indicator used: Yes Confirmation: Auscultation, Exhaled CO2 Suctioning (Oral/Tracheal): Yes Comments: Patient intubated prior to code blue. Circulation Circulation #1: Time: 11:50 Pulse Rate (adult): 0 Blood Pressure Systolic: 0 Blood Pressure Diastolic: 0 Circulation #2: Time: 12:08 Pulse Rate (adult): 70 Blood Pressure Systolic: 116 Blood Pressure Diastolic: 54 Circulation #3: Time: 12:13 Pulse Rate (adult): 70 Blood Pressure Systolic: 94 Blood Pressure Diastolic: 49 Circulation #4: Time: 12:18 Pulse Rate (adult): 70 Blood Pressure Systolic: 78 Blood Pressure Diastolic: 47 Circulation #5: Time: 12:23 Pulse Rate (adult): 72 Blood Pressure Systolic: 92 Blood Pressure Diastolic: 32 Defibrillation Defbrillation : EKG Rhythm: Other Compressions: Manual Time Defibrillator Shocked Pt.: 12:00 Defib. Joules: 120 Pulse Present: No EKG Rhythm: Paced Procedure - IV Procedure - IV #1: IV Side: Right IV Location: Hand IV Catheter Type: Peripheral IV IV Placed by Placed prior to code blue. IV Gauge: 20 IV Line Care: Saline Flush Procedure - IV #2: IV Side: Left IV Location: shoulder IV Catheter Type: Saline Lock IV Placed by Placed prior to code blue. IV Gauge: 22 IV Line Care: Saline Flush Procedure - IV #3: IV Side: Right IV Location: Upper Chest IV Catheter Type: Saline Lock IV Placed by Placed prior to code blue. IV Gauge: 20 IV Line Care: Saline Flush Medications & Response Medications and Responses #1: Medication Time: 11:50 ADULT Medications Given ADULT: Epinephrine 1 mg Route of Administration: IV Heart Rate: 0 EKG Rhythm: Asystole Blood Pressure Systolic: 0 Blood Pressure Diastolic: 0 O2 Sat by Pulse Oximetry: 100 EKG Rhythm: Asystole Medications and Responses #2: Medication Time: 11:51 ADULT Medications Given ADULT: Sodium Bacarbinate 50 meq Route of Administration: IV Heart Rate: 0 EKG Rhythm: Asystole Blood Pressure Systolic: 0 Blood Pressure Diastolic: 0 O2 Sat by Pulse Oximetry: 100 EKG Rhythm: Asystole Medications and Responses #3: Medication Time: 11:53 ADULT Medications Given ADULT: Epinephrine 1 mg Route of Administration: IV Heart Rate: 0 EKG Rhythm: Asystole Blood Pressure Systolic: 0 Blood Pressure Diastolic: 0 O2 Sat by Pulse Oximetry: 100 EKG Rhythm: PEA Medications and Responses #4: Medication Time: 11:56 ADULT Medications Given ADULT: Epinephrine 1 mg Route of Administration: IV Heart Rate: 0 EKG Rhythm: Asystole Blood Pressure Systolic: 0 Blood Pressure Diastolic: 0 O2 Sat by Pulse Oximetry: 100 EKG Rhythm: Agonal Medications and Responses #5: Medication Time: 12:03 ADULT Medications Given ADULT: Sodium Bacarbinate 50 meq Route of Administration: IV Heart Rate: 70 EKG Rhythm: Paced Medications and Responses #6: Medication Time: 12:05 ADULT Medications Given ADULT: Dopamine 2-10 ug/kg/min (20) Route of Administration: IV Heart Rate: 70 EKG Rhythm: Paced Medications and Responses #7: Medication Time: 12:18 ADULT Medications Given ADULT: Epinephrine Gtt (10) Medication Comment: All gtts currently maxed out. See EMAR. Heart Rate: 70 EKG Rhythm: Paced Procedure - Central Venous Cat Central venous catheter time: 12:15 Central venous catheter site: Rt Femoral Central Venous Catheter Insert: Terrell Diaz NP Procedure - Valle Catheter Urinary Catheter Type/Location: Uretheral (Valle) Urine Appearance: Clear Urine Color: Dark Geraldine Valle Catheter Secured: Yes Valle Catheter Inserted by Who: Placed prior to code blue. Nurses Notes Rosy Coma Scale Eye Opening: None (1) Rosy Coma Scale Verbal: None (1) Chardon Coma Scale Motor: None (1) Glascow Total: 3 Pupil Reaction: Sluggish EKG Rhythm: Paced, PEA, Asystole Nurses Notes - Comment: 1154: Family present during code blue. Time Code Ended Time Code Ended: 12:23 Post Arrest Status: Ventilated Outcome of code: Successful Family notified: Yes Attending called: Yes Code Team Present: Terrell Diaz NP, Kathy RN, Calvin RN, Dawson RN, Polo Damon ERT, Radha RN, Breanna RT, Peter ERT, Kathy RT, Edwige RT, Noa RN, Hattie RN Post Resuscitation Neurologica Pupil Size: 3 Comment: Equal, reactive but sluggish. ROSC Time of ROSC: 12:02 Hattie Julio Jan 09, 2025 13:30
[2025-01-09] MEDS: MIDAZOLAM DRIP 50 mg/50mL 50 ML IV ONE (14:00)
[2025-01-09 15:03] LABS: Base Excess -10.6 mmol/L (-2.0-3.0)
[2025-01-09 15:16] LABS: Sodium 130 mmol/L (136-145)
[2025-01-09 15:17] LABS: Chloride 95 mmol/L (98-107); Potassium 4.5 mmol/L (3.5-5.1)
[2025-01-09 15:18] LABS: Anion Gap 15 (5-15)
[2025-01-09 15:19] LABS: Calcium 7.0 mg/dL (8.7-10.4); Carbon Dioxide 20 mmol/L (20-31)
[2025-01-09 15:23] LABS: BUN/Creatinine Ratio 6.6 (10.0-20.0)
[2025-01-09 15:24] LABS: Alkaline Phosphatase 87 U/L (46-116); Blood Urea Nitrogen 15 mg/dL (9-23); Glucose 314 mg/dL (74-106); Total Protein 4.7 g/dL (5.7-8.2)
[2025-01-09 15:27] LABS: Alanine Aminotransferase 387 U/L (7-40); Albumin 2.5 g/dL (3.2-4.8); Bilirubin, Total 1.4 mg/dL (0.2-1.0)
[2025-01-09] MEDS: DOPamine 1600MCG/ML D5W 250 ML IV SCH (16:15)
[2025-01-09] MEDS: EPINEPHrine HCL 250 ML IV ONE (18:20)
[2025-01-09] MEDS: EPINEPHrine HCL 250 ML IV SCH (18:21)
[2025-01-09] MEDS: VASOPRESSIN 20 UNIT/ML ONE (18:27)
--- NOTE | 2025-01-10 08:07 | DVHDS2 ---
Discharge Summary Date of Admission Jan 08, 2025 at 19:18 Date of Discharge: Jan 09, 2025 Admitting Diagnosis Acute on chronic respiratory failure Labs/Diagnostic Data: Laboratory Results Test 01/09/25 18:31 01/09/25 14:52 01/09/25 14:50 01/09/25 12:08 POC Glucose 105 mg/dl (70-106) Blood Gas Specimen Type Arterial Blood Gas Sample Site Arterial line Blood Gas Patient Temperature 37.0 Arterial Blood Date Drawn [id number] Arterial Blood pH 7.259 (7.350-7.450) Arterial Blood Partial Pressure CO2 35.2 mmHg (35.0-48.0) Arterial Blood Partial Pressure O2 56.3 mmHg (83.0-108.0) Arterial Blood HCO3 15.4 mmol/L (21.0-28.0) Arterial Blood Oxygen Saturation 83.8 % (94.0-98.0) Arterial Blood Base Excess -10.6 mmol/L (-2.0-3.0) Arterial Blood Oxyhemoglobin 82.5 % (94.0-98.0) Arterial Blood Carboxyhemoglobin 1.2 % (0.5-1.5) Arterial Blood Methemoglobin 0.3 % (0.0-1.5) Thad Test N/a Blood Gas Total Hemoglobin 17.10 g/dL (13.5-17.5) Blood Gas Set Respiration Rate 20.0 Blood Gas Modality Vent - ac FiO2 % 100.0 Blood Gas Tidal Volume 500.0 Blood Gas PEEP or CPAP 8.0 Blood Gas Critical Value Read Back Yes Blood Gas Notified Whom Leon lafleur np Blood Gas Notified Time [id number] Blood Gas Notified By jimi Zhao rrt Sodium Level 130 mmol/L (136-145) Potassium Level 4.5 mmol/L (3.5-5.1) Chloride Level 95 mmol/L (98-107) Carbon Dioxide Level 20 mmol/L (20-31) Anion Gap 15 (5-15) Blood Urea Nitrogen 15 mg/dL (9-23) Creatinine 2.27 mg/dL (0.700-1.30) Glomerular Filtration Rate Calc 27 mL/min (>90) BUN/Creatinine Ratio 6.6 (10.0-20.0) Serum Glucose 314 mg/dL (74-106) Calcium Level 7.0 mg/dL (8.7-10.4) Total Bilirubin 1.4 mg/dL (0.2-1.0) Aspartate Amino Transferase (AST) 1146 U/L (13-40) Alanine Aminotransferase (ALT) 387 U/L (7-40) Alkaline Phosphatase 87 U/L (46-116) Total Protein 4.7 g/dL (5.7-8.2) Albumin 2.5 g/dL (3.2-4.8) White Blood Count 13.8 10^3/uL (4.4-10.8) Red Blood Count 5.36 10^6/uL (4.5-5.90) Hemoglobin 16.9 g/dL (13.5-17.5) Hematocrit 53.3 % (41.0-53.0) Mean Corpuscular Volume 99.5 fL (80.0-100.0) Mean Corpuscular Hemoglobin 31.6 pg (28.0-32.0) Mean Corpuscular Hemoglobin Concent 31.7 g/dL (32.0-36.0) Red Cell Distribution Width 18.1 % (11.8-14.3) Platelet Count 120 10^3/uL (140-450) Mean Platelet Volume 8.0 fL (6.9-10.8) Neutrophils (%) (Auto) 78.2 % (37.0-80.0) Lymphocytes (%) (Auto) 12.9 % (10.0-50.0) Monocytes (%) (Auto) 8.2 % (0.0-12.0) Eosinophils (%) (Auto) 0.5 % (0.0-7.0) Basophils (%) (Auto) 0.2 % (0.0-2.0) Neutrophils # (Auto) 10.8 10 ^3/uL (1.6-8.6) Lymphocytes # (Auto) 1.8 10 ^3/uL (0.4-5.4) Monocytes # (Auto) 1.1 10 ^3/uL (0-1.3) Eosinophils # (Auto) 0.1 10 ^3/uL (0-0.8) Basophils # (Auto) 0 10 ^3/uL (0-0.2) Nucleated Red Blood Cells 1.6 % Test 01/09/25 02:39 01/08/25 15:06 01/08/25 12:43 01/08/25 12:15 D-Dimer, Quantitative 1.51 mg/L FEU (0.0-0.49) Hemoglobin A1c 6.7 % A1C (<5.7) Troponin I High Sensitivity 103 ng/L (</=54) Urine Color Yellow (Yellow) Urine Clarity Turbid (Clear) Urine pH 5.5 (5.0-9.0) Urine Specific [place] 1.011 (1.001-1.035) Urine Protein Negative (Negative) Urine Ketones Negative (Negative) Urine Blood Negative /uL (Negative) Urine Nitrite Negative (Negative) Urine Bilirubin Negative (Negative) Urine Urobilinogen Normal mg/dL (Negative) Urine Leukocyte Esterase Negative /uL (Negative) Urine RBC 2 /hpf (0 - 3) Urine Microscopic WBC 3 /HPF (0-3) Urine Squamous Epithelial Cells Few /hpf (<5) Urine Bacteria None seen /hpf (None Seen) Urine Hyaline Casts Mod /lpf (0 - 2) Urine Yeast (Budding) Occasional /hpf (None Urine Glucose 4+ mg/dL (Normal) Lactic Acid Level 2.0 mmol/L (0.4-2.0) B-Type Natriuretic Peptide 931.69 pg/mL (0-100) Other Laboratory Tests 01/09/25 14:50 01/09/25 12:08 Brief Hx & Hospital Course: History of Present Illness 84-year-old male presents for evaluation of shortness for breath. Patient reports a four day history of worsening shortness for breath with associated nonproductive cough. Also reports lower extremity swelling. No fever or chills. No other acute complaints reported. Course of hospitalization: After assuming care of the patient from the admitting hospitalist, the patient was found to already be max down on norepinephrine drip. When I assessed with the patient, the patient was found to be severely obtunded, for which I had a long discussion with both the patient's and daughter who were bedside. Patient was intubated with a glide scope, using 8. Tube without any difficulty by myself. Shortly after, the patient was found to be pulses. Code blue was called, for which I was able to obtain return of spontaneous circulation after ACLS measures. Patient remains critical, but hemodynamically stable at which time he placed both a right femoral central line and right femoral arterial line. Patient was on maximum vasopressor support. Empiric antibiotics were placed. Patient continued to deteriorate while in the hospital. Long discussion was made before the end of my shift with the family regarding his poor prognosis. At the time he was made a full DNR, but to continue current medical modalities. Patient was subsequently with time of noted to be at 2058. Total time spent with patient discussing and formulating plan of care: 35 minutes. This medical document was created using an electronic medical record system with [employer] dictation system. Although this document has been carefully reviewed, there may still be some phonetic and typographical errors. These areas are purely typographical due to imperfections of the software programs, and do not reflect any compromise in the patient's medical care. Condition at Discharge: Poor Final Diagnosis/Problems List -septic shock -metabolic encephalopathy -acute on chronic systolic heart failure -cardiopulmonary arrest -acute hypoxic respiratory failure -atrial fibrillation -acute kidney injury, vasomotor nephropathy -NSTEMI, probably type 2 -severe protein malnutrition -right pleural effusion Discharge Disposition: at Hospital Discharge Instruct/Medications Scheduled Amiodarone HCl (Amiodarone HCl), 1 TAB PO DAILY, (Reported) Apixaban Base (Eliquis), 2.5 MG PO BID, (Reported) Carvedilol (Carvedilol), 1 TAB PO BID, (Reported) Dapagliflozin Propanediol (Farxiga), 1 TAB PO DAILY, (Reported) Furosemide (Furosemide), 1 TAB PO DAILY, (Reported) Gabapentin (Gabapentin), 1 CAP PO TID, (Reported) Levothyroxine Sodium (Levothyroxine Sodium), 1 TAB PO QAM, (Reported) Potassium Chloride (Potassium Chloride ER), 1 TAB PO DAILY, (Reported) Simvastatin (Simvastatin), 1 TAB PO QPM, (Reported) Spironolactone (Spironolactone), 1 TAB PO DAILY, (Reported) Tamsulosin Hcl (Tamsulosin Hcl), 2 CAP PO DAILY, (Reported) 36 Discharge Statement: "Patient was advised to return to the ER or call 911 if any headaches, dizziness, shortness of breath, chest pain, abdominal pain, bleeding, fevers, or worsening of medical condition. Patient was counseled about treatment plan, medications, possible side effects, patientverbalized understanding. All questions were answered to the best of my ability. This discharge took greater then 30 minutes in planning, reviewing documentation, counseling the patient, and discussing with other team members." ASSESSMENT ASSESSMENT Assessment Date of Service: Jan 09, 2025 Billing Provider: LEEANN LAFLEUR NP Common Visit Codes: 99513-HLS/OBS DISCH DAY >30min LEEANN LAFLEUR NP Jan 10, 2025 08:07
--- NOTE | 2025-01-10 10:18 | DVHSR ---
APPROVED REPORT EXAM: Two-dimensional and M-mode echocardiogram with Doppler and color Doppler. INDICATION EF Surgery/Intervention Pacemaker: RISK FACTORS Obesity: Height: 5'10", Weight: 220 DIMENSIONS LVDd4.9 (3.8-5.7cm)LA (2D)4.5 (1.9-4.0cm)Aortic Root3.8 (2.0-3.7cm) LVDs4.5 (2.5-4.0cm)LA (MM) (1.9-4.0cm)Aortic Cusp Exc1.7 (1.5-2.0cm) EF (%) 13.0 (55-70%)Rt. Atrium8.4 (1.9-4.0cm)Asc. Aorta cm IVSd1.3 (0.7-1.1cm)RV (D)6.5 (1.8-2.4cm) PWd1.2 (0.7-1.1cm) Mitral Valve MitralMitral Stenosis E wave0.42m/sMV Mean GR.mmHg E/A ratio0.02D MVAcm2 Aortic Valve Aortic ValveAortic Stenosis V10.50m/Parish Mean GR.1mmHg V20.70m/Parish Peak GR.2mmHg LVOT Diameter2.3 (1.8-2.4cm)Doppler AVA2.97cm2 Pulmonic Valve V20.48m/s Tricuspid Valve TR Velocity2.06m/s [id number] Other Information Technically limited study due to body habitus, patient lying flat. 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
--- NOTE | 2025-01-18 06:24 | ECG ---
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
== END 2025-01-09 20:59 | DRG 208 ==
LOC: ER 11:25 → EDBD 11:25 → OVERFLOW 19:18
PROVIDERS: ADMIT Nurse Practitioner Acute Care; ATTEND Nurse Practitioner Acute Care
PROC: 0BH17EZ Insertion of Endotracheal Airway into Trachea, Via Natural or Artificial Opening (ICD-10-PCS; principal; 2025-01-09)
PROC: 5A1935Z Respiratory Ventilation, Less than 24 Consecutive Hours (ICD-10-PCS; 2025-01-09)
PROC: 06HY33Z Insertion of Infusion Device into Lower Vein, Percutaneous Approach (ICD-10-PCS; 2025-01-09)
PROC: B54BZZA Ultrasonography of Right Lower Extremity Veins, Guidance (ICD-10-PCS; 2025-01-09)
PROC: 04HK33Z Insertion of Infusion Device into Right Femoral Artery, Percutaneous Approach (ICD-10-PCS; 2025-01-09)
PROC: 5A12012 Performance of Cardiac Output, Single, Manual (ICD-10-PCS; 2025-01-09)
PROC: 5A2204Z Restoration of Cardiac Rhythm, Single (ICD-10-PCS; 2025-01-09)
DX: J96.01 Acute respiratory failure with hypoxia (principal); E43 Unspecified severe protein-calorie malnutrition; G93.41 Metabolic encephalopathy; I21.A1 Myocardial infarction type 2; N17.0 Acute kidney failure with tubular necrosis; I50.23 Acute on chronic systolic (congestive) heart failure; R57.0 Cardiogenic shock; I11.0 Hypertensive heart disease with heart failure; Z66 Do not resuscitate; I48.91 Unspecified atrial fibrillation; J44.9 Chronic obstructive pulmonary disease, unspecified; E11.9 Type 2 diabetes mellitus without complications; E78.5 Hyperlipidemia, unspecified; I46.9 Cardiac arrest, cause unspecified; Z88.5 Allergy status to narcotic agent; Z90.49 Acquired absence of other specified parts of digestive tract; Z95.0 Presence of cardiac pacemaker; Z68.31 Body mass index [BMI] 31.0-31.9, adult
CPT/HCPCS: 36415; 36556; 36600; 36620; 71045; 76604; 80048; 80053; 81001; 82805; 82962; 83036; 83605; 83880; 84484; 85025; 85379; 87040; 87070; 87205; 92950; 92960; 93005; 93306; 94002; 96361; 96365; 96367; 96375; 99291; G0378; J0169; J1815; J2405